=== PATIENT | male | born 1980 | race Caucasian/White ===

== ENCOUNTER 2017-12-26 01:07 | Emergency (ER) | payer OTHER, BC ==
[~2017-12-26] VITALS: Ht 185.4 cm; Wt 142.9 kg
[~2017-12-26 01:07] MED LIST: FIORICET 50-301 EACH PO; HYDROCODONE-AP1 EAC6 PO; IBUPROFEN 800800 M1 PO; IMITREX 25 MG T25 M1 PO; LUNESTA2 MG PO; PRILOSEC 10MG C10 MG PO; ROBAXIN 750 MG750 M1 PO; ROBAXIN500 MG PO; SERTRALINE HCL50 MG PO; TOPAMAX 25 MG T25 M1 PO; TOPAMAX50 MG PO; TRAMADOL 50 MG50 MG PO; XANAX 0.25 MG0.25 MG PO; ZANTAC 150MG T150 MG PO
[2017-12-26 01:28] LABS: URINE BILIRUBIN NEGATIVE (Negative); URINE BLOOD 3+ (Negative); URINE CLARITY CLEAR; URINE COLOR YELLOW; URINE GLUCOSE-RANDOM NEGATIVE (Negative); URINE KETONES NEGATIVE (Negative); URINE LEUKOCYTES-REFLEX NEGATIVE (Negative); URINE NITRITE-REFLEX NEGATIVE (Negative); URINE PROTEIN NEGATIVE (Negative); URINE SPECIFIC GRAVITY >= 1.030 (1.005-1.030); URINE UROBILINOGEN 0.2 E.U./dl (0.2-1.0)
[2017-12-26 01:40] LABS: BACTERIA-REFLEX >30 Many /HPF (None Seen); CASTS None Seen /LPF (None Seen); CRYSTALS None Seen /LPF (None Seen); MUCUS 4-6 Moderate strn/LPF (None Seen); SQUAMOUS 0-3 Few /LPF (0-3); URINE RBC 3-10 Few /HPF (0-2); URINE WBC-REFLEX 0-5 Rare /HPF (0-5)
[2017-12-26] MEDS ORDERED: NAPROSYN500 MG PO (01:48)
[2017-12-26] MEDS ORDERED: NORCO 5-325 TA1 EACH PO (01:48)
[2017-12-26] MEDS ORDERED: DIAZEPAM 5 MG5 M1 PO (01:48)
[2017-12-26 02:12] VITALS: BP 130/82
== END 2017-12-26 02:15 | disposition home or self-care (01) ==
LOC: M.ERS 01:07
PROVIDERS: Personal Emergency Response Attendant
DX: S39.012A Strain of muscle, fascia and tendon of lower back, initial encounter (principal); R31.9 Hematuria, unspecified; F41.9 Anxiety disorder, unspecified; F32.9 Major depressive disorder, single episode, unspecified; F17.200 Nicotine dependence, unspecified, uncomplicated; Z88.1 Allergy status to other antibiotic agents; Z88.0 Allergy status to penicillin; X50.0XXA Overexertion from strenuous movement or load, initial encounter; Y93.89 Activity, other specified; Y92.89 Other specified places as the place of occurrence of the external cause; Y99.8 Other external cause status

== ENCOUNTER 2018-11-03 10:54 | Emergency (ER) | payer BC ==
[~2018-11-03] VITALS: Ht 185.4 cm; Wt 163.3 kg
[~2018-11-03 10:54] MED LIST changes: +DIAZEPAM 5 MG5 M1 PO; +NAPROSYN500 MG PO; +NORCO 5-325 TA1 EACH PO
[2018-11-03 11:00] VITALS: BP 160/94
[2018-11-03] MEDS ORDERED: XANAX 0.5 MG0.5 MG PO (11:11)
[2018-11-03] MEDS ORDERED: ULTRAM 50MG TAB50 MG PO (11:12)
[2018-11-03] MEDS ORDERED: EFFEXOR 5050 MG/1 T1 PO (11:14)
[2018-11-03] MEDS ORDERED: NEURONTIN600 MG PO (11:14)
[2018-11-03] MEDS ORDERED: TORADOL 10 MG T10 MG PO (11:22)
[2018-11-03] MEDS ORDERED: NORFLEX100 MG PO (11:22)
[2018-11-03] MEDS ORDERED: PHENERGAN 25 MG25 M1 PO (11:25)
== END 2018-11-03 11:32 | disposition home or self-care (01) ==
LOC: M.ERS 10:54
DX: G43.909 Migraine, unspecified, not intractable, without status migrainosus (principal); F41.9 Anxiety disorder, unspecified; F32.9 Major depressive disorder, single episode, unspecified; Z88.1 Allergy status to other antibiotic agents; Z88.8 Allergy status to other drugs, medicaments and biological substances; Z88.0 Allergy status to penicillin